=== PATIENT | female | born 1980 | race Caucasian/White ===

== ENCOUNTER 2018-09-09 11:13 | Day surgery (SDC) | payer OTHER ==
--- NOTE | 2018-09-09 11:31 | GHP ---
DATE OF ADMISSION: 09/09/2018 ADMISSION DIAGNOSIS: Left ureteral calculus with urinary tract infection and hydronephrosis. HISTORY OF PRESENT ILLNESS: This is a -iafq-mol lady who has presented with radiologic shashank luation of a distal left ureteral stone, 6 mm in size, and left hydronephrosis. She had an E coli UT I. The original imaging was done because of abdominal pain. 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 FAMILY HISTORY: Noncontributory. PAST MEDICAL HISTORY: Ureterolithiasis, Sjogren disease, nephrolithiasis, hypocitraturia, hydronephr osis, asthma. PAST SURGICAL HISTORY: , cystoscopy with stent removal, kidney stones, sinus surgery, and u reteroscopy with laser surgery. MEDICATIONS: Flomax, Keflex, ketorolac, Tylenol, Urocit-K. ALLERGIES: Sulfa. FAMILY HISTORY: Positive for kidney stones, hypertension, and ovarian cancer, colon cancer, and leuk emia. SOCIAL HISTORY: Negative for alcohol and tobacco consumption. IMMUNIZATIONS: PCV up to date. REVIEW OF SYSTEMS: Negative cardiac, respiratory, GI, and endocrine. PHYSICAL EXAMINATION: VITAL SIGNS: Stable. CHEST: Clear. HEART: Regular rate and rhythm. ABDOM EN: Normal. No organomegaly, rebound, or guarding. LOWER EXTREMITIES: Normal. LABORATORY STUDIES: Urinalysis in the office had trace blood and +3 leukocytes and positive nitrites . PLAN: At the present time, she is admitted for ureteroscopy, and she is aware she may need a uretera l stent placed, but in her past history, she can crystallize the stents quickly, so duration of the s tent would be short-lived. Copy requested to: Kwame /[id number]/MODL
[2018-09-09] MEDS ORDERED: IOPAMIDOL (ISOVUE-M 300) 15 ML VIAL ONE (14:04)
[2018-09-09] MEDS ORDERED: LIDOCAINE 2% JELLY 20 ML (UROJECT) ONE (14:04)
[2018-09-09] MEDS ORDERED: LR 1,000 ML IV ONE (15:16)
[2018-09-09] MEDS ORDERED: levOFLOXACIN 500 MG/DEXTROSE/100 ML BAG IV ONE (15:37)
[2018-09-09] MEDS ORDERED: levOFLOXACIN 500 MG/DEXTROSE 100 ML IV ONE (15:45)
[2018-09-09] MEDS ORDERED: MIDAZOLAM 2 MG/2 ML VIAL IVP ONE (16:00)
--- NOTE | 2018-09-09 16:00 | PDANEPAE ---
ANE History of Present Illness left kidney stone with hydronephrosis ANE Past Medical History - Cardiovascular History Hx Hypertension: No Hx Arrhythmias: No Hx Chest Pain: No Hx Coronary Artery / Peripheral Vascular Disease: No Hx CHF / Valvular Disease: No Hx Palpitations: No - Pulmonary History Hx COPD: No Hx Asthma/Reactive Airway Disease: No Hx Recent Upper Respiratory Infection: Yes Hx Oxygen in Use at Home: No Hx Sleep Apnea: No Pulmonary History Comment: Asthma. Recent URI - July - Neurologic History Hx Cerebrovascular Accident: No Hx Seizures: Yes Hx Dementia: No Neurologic History Comment: Childhood seizures - nothing since. - Endocrine History Hx Diabetes: No Hypothyroid: No Hyperthyroid: No Obesity: mild - Renal History Hx Renal Disorders: Yes Renal History Comment: R duplicated system. Phx of kidney stones - Liver History Hx Hepatic Disorders: No - Neurological & Psychiatric Hx Hx Neurological and Psychiatric Disorders: No - Cancer History Hx Cancer: No - Congenital Disorder History Hx Congenital Disorders: No - GI History GERD: no Hx Gastrointestinal Disorders: No - Other Health History Other Health History: Sjogrens syndrome - Chronic Pain History Chronic Pain: No - Surgical History Prior Surgeries: x 3. disc replacement - anterior neck. sinus sx. Left uterer stone lipotripsy & removal of fragments w/ 2 stent placements ANE Review of Systems Review of systems is: negative Review of Systems: - Exercise capacity Exercise capacity: >=4 METS METS (RN): 4 METS ANE Patient History - Allergies Allergies/Adverse Reactions: Sulfa (Sulfonamide Antibiotics) Allergy (Verified 09/09/18 15:35) radha alvarado - Home Medications Home Medications: Cephalexin 09/09/18 [Last Taken 09/09/18 06:30] KETOROLAC TROMETHAMINE 09/09/18 [Last Taken 09/06/18] Potassium Citrate 09/09/18 [Last Taken 09/09/18 06:30] Tamsulosin HCl 09/09/18 [Last Taken 09/08/18] - NPO status NPO Status: no food or drink >8 hours NPO Since - Liquids (Date): 09/09/18 NPO Since - Liquids (Time): 06:30 NPO Since - Solids (Date): 09/09/18 NPO Since - Solids (Time): 06:30 - Anes Hx Anes Hx: post operative nausea and vomiting - Smoking Hx Smoking Status: Never smoked - Family Anes Hx Family Anes Hx: none Family Hx Anesthesia Complications: None. ANE Labs/Vital Signs - Vital Signs Vital Signs: reviewed preoperatively; see RN documention for details Blood Pressure: 137/82 Heart Rate: 85 Respiratory Rate: 18 O2 Sat (%): 92 Height: 165.1 cm Weight: 83.915 kg ANE Physical Exam - Airway Neck exam: FROM Mallampati Score: Class 1 Mouth exam: normal dental/mouth exam - Pulmonary Pulmonary: no respiratory distress - Cardiovascular Cardiovascular: regular rate and rhythym - ASA Status ASA Status: II ANE Anesthesia Plan Anesthesia Plan: general endotracheal anesthesia
[2018-09-09] MEDS ORDERED: PROPOFOL/EMULSION 500 MG/50 ML BOTTLE IV ONE ×2 (16:07→17:11)
--- NOTE | 2018-09-09 16:20 | PDHPUP ---
History & Physical Update H&P update statement: This history and physical update is based on an assessment of the patient which was completed after admission or registration (within 24 hours), but prior to the surgery/procedure. H&P update: H&P reviewed & patient examined, no change in patient's condition since H&P completed
[2018-09-09] MEDS ORDERED: fentaNYL 100 MCG/2 ML INJ ONE (16:29)
[2018-09-09] MEDS ORDERED: PROPOFOL 200 MG/20 ML VIAL ONE (16:34)
[2018-09-09] MEDS ORDERED: MEPERIDINE 25 MG/0.5 ML AMP IVP PRN (17:28)
[2018-09-09] MEDS ORDERED: LABETALOL HCL 5 MG/ML 20 ML MDV IVP PRN (17:28)
[2018-09-09] MEDS ORDERED: fentaNYL 100 MCG/2 ML INJ IVP PRN (17:28)
[2018-09-09] MEDS ORDERED: HYDROmorphONE/DILAUDID 2 MG/ML INJ IVP PRN (17:28)
[2018-09-09] MEDS ORDERED: PROMETHAZINE HCL 25 MG/ML INJ IVP PRN (17:28)
[2018-09-09] MEDS ORDERED: ALBUTEROL 3 ML DEYVIAL IH PRN (17:28)
[2018-09-09] MEDS ORDERED: ONDANSETRON 4 MG/2 ML VIAL IVP PRN (17:28)
[2018-09-09] MEDS ORDERED: oxyCODONE IR 5 MG TAB PO PRN (17:28)
[2018-09-09] MEDS ORDERED: LR 500 ML IV PRN (17:28)
[2018-09-09] MEDS ORDERED: NALOXONE HCL 0.4 MG/ML INJ IVP PRN (17:28)
[2018-09-09] MEDS ORDERED: METOCLOPRAMIDE 10 MG/2 ML VIAL IVP PRN (17:28)
[2018-09-09] MEDS ORDERED: ACETAMINOPHEN 500 MG TAB PO PRN (17:28)
[2018-09-09] MEDS ORDERED: PHENYLEPHRINE HCL 100 MCG/ML SYR IVP PRN (17:28)
[2018-09-09] MEDS ORDERED: DEXAMETHASONE 4 MG/ML VIAL ONE ×2 (17:31)
[2018-09-09] MEDS ORDERED: KETOROLAC 30 MG/1 ML SDV ONE (17:31)
[2018-09-09] MEDS ORDERED: ONDANSETRON 4 MG/2 ML VIAL ONE (17:31)
[2018-09-09] MEDS ORDERED: ePHEDrine SULFATE 25 MG/5 ML SYR ONE (17:32)
--- NOTE | 2018-09-09 17:45 | POSTOPPROG ---
Post Op Note Date of Operation: 09/09/18 (dictated) Surgeon: Will Frost Anesthesia: LMA Pre-op Diagnosis: left ureterolithiasis Procedure: ureteroscopy / laser / stent Inf/Abcess present in the surg proc area at time of surgery?: No EBL: Minimal Drains: Other (stent)
--- NOTE | 2018-09-09 18:05 | POSTANESTH ---
Post Anesthetic Evaluation Cardiovascular Status: Normal, Stable Respiratory Status: Normal, Stable Level of Consciousness/Mental Status: Can Participate in Eval Pain Control: Adequate, Prn Tx Ordered Nausea/Vomiting Control: Adequate, Prn Tx Ordered Complications Possibly Related to Anesthesia: None Noted
--- NOTE | 2018-09-09 18:25 | GOP ---
DATE OF OPERATION: 09/09/2018 SURGEON: Will Frost MD PREOPERATIVE DIAGNOSIS: Left ureteral calculus, hydronephrosis. POSTOPERATIVE DIAGNOSIS: Left ureteral calculus, hydronephrosis. PROCEDURE PERFORMED: Cystoscopy, retrograde ureteropyelogram, ureteroscopic holmium laser lithotrips y of the stone, extraction, placement of 4.7 multi-length stent under fluoroscopy with interpretation . FINDINGS: DESCRIPTION OF PROCEDURE: The lady underwent general anesthesia, prepped and draped in normal steril e fashion in dorsal lithotomy position. After appropriate time-out, the scope was passed into her bl adder, and she had the left ureteral orifice was cannulated. A [place] catheter and retrograde revea led the distal ureteral stone with hydronephrosis. At that point, I passed a 0.032 guidewire beyond the stone, attempted to dilate the intramural ureter with the inner workings of the ureteral access s mady, but that the stone was impacted, so at that point, went up with the scope. A semi-rigid scope dislodged the stone and fragmented it with the Holmium laser and extracted the stone fragments with the basket and then at the end of the procedure, a 4.7 multi-length stent was placed and curled in th e renal pelvis and curled in the bladder. At the end of the procedure, a Uro-Jet was placed in the u rethra. She will be discharged home to see me in the office in 1 week for stent removal. No complic ations. I will talk to her about the findings. /[id number]/MODL
[2018-09-09 18:51] VITALS: BP 105/71
[2018-09-10] MEDS ORDERED: levOFLOXACIN 500 MG/DEXTROSE 100 ML IV ONE (16:00)
== END 2018-09-09 19:01 | disposition home or self-care (01) ==
LOC: FSGY 11:13
PROVIDERS: ATTEND Specialist
PROC: 0TF78ZZ Fragmentation in Left Ureter, Via Natural or Artificial Opening Endoscopic (ICD-10-PCS; principal; 2018-09-09 16:30)
PROC: 0TC78ZZ Extirpation of Matter from Left Ureter, Via Natural or Artificial Opening Endoscopic (ICD-10-PCS; principal; 2018-09-09 16:30)
PROC: 0T778DZ Dilation of Left Ureter with Intraluminal Device, Via Natural or Artificial Opening Endoscopic (ICD-10-PCS; principal; 2018-09-09 16:30)
PROC: BT17YZZ Fluoroscopy of Left Ureter using Other Contrast (ICD-10-PCS; principal; 2018-09-09 16:30)
DX: N13.2 Hydronephrosis with renal and ureteral calculous obstruction (principal); Z87.442 Personal history of urinary calculi; Z87.440 Personal history of urinary (tract) infections; Z88.2 Allergy status to sulfonamides
CPT/HCPCS: 52356; 76000; C1758; C1769; C1894; C2625; J1100; J1885; J1956; J2250; J2405; J2704; J3010; Q9967